=== PATIENT | male | born 1985 | race Two or more races ===

== ENCOUNTER 2020-08-14 17:15 | Inpatient (IN) | payer MEDICAID ==
[~2020-08-14] VITALS: Ht 165.1 cm; Wt 54.0 kg
--- NOTE | 2020-08-14 18:19 | NUR ---
RN NOTE RECEIVED PATIENT FROM EMT IN STABLE CONDITION.
[2020-08-14 18:20] VITALS: BP 117/71
--- NOTE | 2020-08-14 19:00 | NUR ---
RN NOTE REPORT RECEIVED FROM TONE RN, PATIENT ADMITTED AT 1730, DIRECT FROM [facility]. PATIENT IN BED, ON SEMI RAMÍREZ'S, AO X4, IN NO S/SX OF ACUTE DISTRESS AT THIS TIME. PATIENT ON 6L VIA OXYGEN MASK, SATURATION AT 95%, SR ON THE MONITOR, HR IS 102. NOTED IV SITE LAC 20G, PATENT AND FLUSHIGN WELL, NO S/S OF INFECTION OR INFILTRATION. SAFETY MEASURES HAVE BEEN PROVIDED AND IMPLEMENTED. PATIENT BED ALARM IS ON. HEAD OF BED ELEVATED. BED IS LOCKED, IN LOWEST POSITION AND SIDE RAILS UP. CALL LIGHT WITHIN REACH OF THE PATIENT. WILL CONTINUE TO MONITOR AND REASSESS FOR ANY CHANGES. AWAITING MD ORDERS.
[2020-08-14 20:00] VITALS: BP 121/71
--- NOTE | 2020-08-14 20:00 | NUR ---
RN NOTE NOTED STILL NO MD ORDERS ON FILE. DR MARIANO WAS NOTIFIED. AWAITING MD ORDERS.
[2020-08-14] MEDS ORDERED: ALBUTEROL SULFATE INH 18 GM HFA.AER.AD IH PRN (21:30)
[2020-08-14] MEDS ORDERED: HYDROCODONE/APAP 5/325MG TABLET PO PRN (21:30)
[2020-08-14] MEDS ORDERED: MAG HYDROX/AL HYDROX/SIMETH 30 ML UDC PO PRN (21:30)
[2020-08-14] MEDS ORDERED: ONDANSETRON HCL/PF 4 MG/2 ML VIAL IVP PRN (21:30)
[2020-08-14] MEDS: CEFTRIAXONE 1 G in IV D5W 50 ML IV SCH (21:30)
[2020-08-14] MEDS ORDERED: MORPHINE SULFATE INJ 2 MG/ML DISP.SYRIN IV PRN (21:30)
[2020-08-14] MEDS ORDERED: MAGNESIUM HYDROXIDE 30 ML UDC PO PRN (21:30)
--- NOTE | 2020-08-14 21:30 | NUR ---
RN NOTE VERIFIED ALLERGY WITH PATIENT, STATED NO KNOWN FOOD OR DRUG ALLERGIES. PATIENT ALSO COMPLAINING OF DRY COUGH, SAYS IT HURTS AND IT BOTHERS HIM. DR MARIANO WAS NOTIFIED, RECEIVED ORDERS FOR ROBITUSSIN DM 5 ML Q4H PRN. MACHINE CRATER WAS MADE AWARE.
[2020-08-14] MEDS: IV 1/2NS 1000 ML 1,000 ML IV PRN (22:17)
[2020-08-14] MEDS ORDERED: CEFTRIAXONE 1 G VIAL ONE (22:26)
[2020-08-14] MEDS: DEXAMETHASONE SOD PHOSPHATE 10 MG/ML VIAL IV SCH (22:33)
[2020-08-14] MEDS ORDERED: AZITHROMYCIN 500 MG VIAL ONE (22:36)
[2020-08-14] MEDS: ENOXAPARIN SODIUM 40 MG/0.4 ML DISP.SYRIN SQ SCH (22:38)
[2020-08-14] MEDS: AZITHROMYCIN 500 MG in IV D5W 250 ML IV SCH (23:07)
[2020-08-14] MEDS: GUAIFENESIN/D-METHORPHAN HB 5 ML UDC PO PRN (23:16)
[2020-08-15] VITALS: BP 122/62
--- NOTE | 2020-08-15 01:00 | NUR ---
RN NOTE MRSA SWAB DONE PER ORDERS. SPECIMEN CONTAINER PLACED IN FRIDGE AND LAB WAS NOTIFIED. CONFIGURATION DEVELOPER AWARE.
[2020-08-15 04:00] VITALS: BP 123/73
[2020-08-15 06:18] LABS: BASOPHILS % (AUTO) 0.2 % (0.0-2.0); HEMATOCRIT 40 % (39-51); HEMOGLOBIN 13.6 g/dL (13.5-17.5); LYMPHOCYTES # (AUTO) 0.8 /CMM (0.8-4.8); LYMPHOCYTES % (AUTO) 5.3 % (20.0-44.0); MEAN CORPUSCULAR HGB CONC 34 g/dl (31.0-36.0); MEAN CORPUSCULAR VOLUME 90 fL (80-96); MONOCYTES # (AUTO) 0.8 /CMM (0.1-1.30); MONOCYTES % (AUTO) 4.9 % (2.0-12.0); NEUTROPHILS # (AUTO) 13.6 /CMM (1.8-8.9); NEUTROPHILS % (AUTO) 89.6 % (43.0-81.0); PLATELET COUNT (AUTO) 590 /CMM (150-450); RED BLOOD CELL COUNT(AUTO) 4.47 MIL/uL (4.5-6.0); WHITE BLOOD COUNT (AUTO) 15.2 K/uL (4.3-11.0)
--- NOTE | 2020-08-15 07:04 | NUR ---
RN NOTE PATIENT REMAINS IN BED, SATURATION AT 94-95% ON 15 LPM VIA NON REBREATHER MASK, 0.45 NS INFUSING AT 75 ML/HR VIA LAC 20G. SR ON THE MONITOR, HR IS 84. SAFETY MEASURES AND APPROPRIATE ISOLATION PRECAUTIONS MAINTAINED. ENDORSED TO LEEANN ROBERTS FOR CONTINUATION OF CARE.
--- NOTE | 2020-08-15 07:30 | NUR ---
RN OPENING NOTES RECEIVED PT IN BED, AWAKE, A/O X4. 15L O2 VIA NRB SATURATION @90%. NO SOB OR ANY RESPIRATORY DISTRESS NOTED. SR ON TELE MONITOR. SKIN IS INTACT. REGULAR DIET. IV ACCESS AT LAC #20 INTACT AND PATENT. 0.45 NS RUNNING @75ML/HR INFUSING WELL. NO PAIN REPORTED AT TIME. SAFETY MEASURES IN PLACE. CALL LIGHT WITHIN REACH. BED LOCKED AND AT LOWEST POSITION WITH SIDE RAILS UP X2. WILL CONTINUE TO MONITOR.
[2020-08-15 07:51] LABS: ALBUMIN 1.9 g/dL (3.4-5.0); BILIRUBIN,TOTAL 0.6 mg/dL (0.2-1.0); CALCIUM, SERUM 8.2 mg/dL (8.5-10.1); CREATININE 0.8 mg/dL (0.6-1.3); MAGNESIUM 1.9 mg/dL (1.8-2.4); PHOSPHORUS 4.3 mg/dL (2.5-4.9); POTASSIUM 4.4 mmol/L (3.5-5.1); TOTAL PROTEIN, SERUM 7.2 g/dL (6.4-8.2)
[2020-08-15 08:00] VITALS: BP 108/69
[2020-08-15] MEDS: DEXAMETHASONE SOD PHOSPHATE 10 MG/ML VIAL IV SCH (08:37)
[2020-08-15 10:18] LABS: THYROID STIMULATING HORMONE 0.371 uIU/mL (0.358-3.74)
[2020-08-15 11:07] LABS: C-REACTIVE PROTEIN 19.4 mg/dL (0.0-0.9)
[2020-08-15 12:00] VITALS: BP 123/71
[2020-08-15] MEDS: IV 1/2NS 1000 ML 1,000 ML IV PRN (14:13)
[2020-08-15 16:00] VITALS: BP 120/74
--- NOTE | 2020-08-15 18:41 | NUR ---
RN CLOSING NOTES PT RESTING IN BED. SATURATION AT 90-95%. NO SOB OR ANY DISTRESS NOTED. NO SIGNIFICANT CHANGES THROUGHOUT THE SHIFT. NO PAIN REPORTED AT THIS TIME. SAFETY MEASURES MAINTAINED. ENDORSED TO NIGHT RN FOR CONTINUATION OF CARE.
--- NOTE | 2020-08-15 19:50 | NUR ---
RN NOTES PATIENT IN BED AWAKE, A/O X4. ON 15L O2 VIA NON-REBREATHER MASK, O2 SAT 90%. NO SOB NOTED. TELE MONITOR ON, SR. WITH IV ACCESS AT LAC #20 INTACT AND PATENT. 0.45 NS RUNNING @75ML/HR INFUSING WELL. NO S/S OF ANY INFILTRATION. SAFETY MEASURES IMPLEMENTED. CALL LIGHT WITHIN REACH. BED LOCKED AND AT LOWEST POSITION WITH SIDE RAILS UP X2. WILL CONTINUE TO MONITOR.
[2020-08-15 20:00] VITALS: BP 116/73
[2020-08-15] MEDS: ACETAMINOPHEN 325 MG TABLET PO PRN (20:39)
[2020-08-15] MEDS: GUAIFENESIN/D-METHORPHAN HB 5 ML UDC PO PRN (20:39)
[2020-08-15] MEDS: CEFTRIAXONE 1 G in IV D5W 50 ML IV SCH (20:40)
[2020-08-15] MEDS: ENOXAPARIN SODIUM 40 MG/0.4 ML DISP.SYRIN SQ SCH (20:41)
[2020-08-15] MEDS: AZITHROMYCIN 500 MG in IV D5W 250 ML IV SCH (21:29)
[2020-08-15] MEDS: ZOLPIDEM TARTRATE 5 MG TABLET PO PRN (21:31)
[2020-08-16] VITALS: BP 107/100
[2020-08-16 04:00] VITALS: BP 112/70
[2020-08-16] MEDS: IV 1/2NS 1000 ML 1,000 ML IV PRN (06:18)
[2020-08-16 06:26] LABS: BASOPHILS % (AUTO) 0.1 % (0.0-2.0); EOSINOPHILS % (AUTO) 0.1 % (0.0-6.0); HEMATOCRIT 42 % (39-51); HEMOGLOBIN 14.3 g/dL (13.5-17.5); LYMPHOCYTES # (AUTO) 0.9 /CMM (0.8-4.8); LYMPHOCYTES % (AUTO) 9.4 % (20.0-44.0); MEAN CORPUSCULAR HGB CONC 34 g/dl (31.0-36.0); MEAN CORPUSCULAR VOLUME 89 fL (80-96); MONOCYTES # (AUTO) 1.1 /CMM (0.1-1.30); MONOCYTES % (AUTO) 11.1 % (2.0-12.0); NEUTROPHILS # (AUTO) 7.8 /CMM (1.8-8.9); NEUTROPHILS % (AUTO) 79.3 % (43.0-81.0); PLATELET COUNT (AUTO) 521 /CMM (150-450); RED BLOOD CELL COUNT(AUTO) 4.76 MIL/uL (4.5-6.0); WHITE BLOOD COUNT (AUTO) 9.9 K/uL (4.3-11.0)
[2020-08-16 06:38] LABS: CREATININE 0.9 mg/dL (0.6-1.3); MAGNESIUM 2.2 mg/dL (1.8-2.4); POTASSIUM 3.9 mmol/L (3.5-5.1)
--- NOTE | 2020-08-16 07:15 | NUR ---
RN OPENING NOTES PATIENT RECEIVED IN BED AWAKE, A/O X4. PATIENT IS ON O2 THERAPY VIA NON-REBREATHER MASK AT 15 LPM. NO SOB NOTED AT THIS TIME. TELE MONITOR ON. IV ACCESS AT LAC #20 INTACT AND PATENT AND 0.45 NS RUNNING @75ML/HR INFUSING WELL. NO S/S OF ANY INFILTRATION. SAFETY PRECAUTIONS IMPLEMENTED, BED LOCKED IN LOWEST POSITION, SIDE RAILS UP X2, CALL LIGHT WITHIN REACH. WILL CONTINUE TO MONITOR AND PROVIDE CARE THROUGHOUT SHIFT.
--- NOTE | 2020-08-16 07:35 | NUR ---
RN NOTE PATIENT IN BED AWAKE, A/O X4. ON 15L O2 VIA NON-REBREATHER MASK, O2 SAT 90%. NO SOB NOTED. TELE MONITOR ON, HR 100'S. IV LAC #20 INTACT AND PATENT. 0.45 NS RUNNING @75ML/HR INFUSING WELL. NO S/S OF ANY INFILTRATION. SAFETY MEASURES IMPLEMENTED. CALL LIGHT WITHIN REACH. BED LOCKED AND AT LOWEST POSITION WITH SIDE RAILS UP X2. ENDORSED TO AM SHIFT.
[2020-08-16 08:00] VITALS: BP 119/66
[2020-08-16] MEDS: DEXAMETHASONE SOD PHOSPHATE 10 MG/ML VIAL IV SCH (08:50)
[2020-08-16] MEDS: GUAIFENESIN/D-METHORPHAN HB 5 ML UDC PO PRN ×3 (09:22→19:55)
[2020-08-16 11:15] LABS: ALBUMIN 2.2 g/dL (3.4-5.0); BILIRUBIN,DIRECT 0.5 mg/dL (0.0-0.2); BILIRUBIN,TOTAL 0.9 mg/dL (0.2-1.0); TOTAL PROTEIN, SERUM 7.3 g/dL (6.4-8.2)
[2020-08-16 11:20] LABS: C-REACTIVE PROTEIN 7.3 mg/dL (0.0-0.9)
[2020-08-16 12:00] VITALS: BP 108/64
[2020-08-16] MEDS: methylPREDNISolone SOD SUCC 125 MG/2ML VIAL IV SCH ×2 (12:07→20:33)
[2020-08-16] MEDS: REMDESIVIR (CHARGED) 100 MG in IV NS 0.9% 230 ML IV SCH (13:25)
[2020-08-16 16:00] VITALS: BP 125/67
[2020-08-16] MEDS ORDERED: IV NS 0.9% 500 ML IV ONE (17:00)
[2020-08-16] MEDS ORDERED: CT SWABBABLE VALVE TRANS SET 1 EA INFUS.SET MC ONE (17:49)
[2020-08-16] MEDS ORDERED: IV NS 0.9% 250 ML IV ONE (17:49)
[2020-08-16] MEDS ORDERED: IOHEXOL-350 100 ML VIAL IV ONE (17:49)
--- NOTE | 2020-08-16 19:00 | NUR ---
RN OPENING NOTE RECEIVED PATIENT IN BED RESTING ALERT ORIENTED X4 VERBALLY RESPONSIVE ON 15L NON REBREATHER MASK COVID POSITIVE, O2:96% IV SITE IS ON LEFT AC INTACT PATENT IV 1/2 NS RUNNING 75CC/HR,CONTINENT BOWEL/BLADDER,AMBULATORY WITH ASSIST,SAFETY MEASURE IMPLEMENT CALL LIGHT WITHIN REACH,BED IN LOW POSITION AND LOCKED CONTINUE TO MONITOR.
--- NOTE | 2020-08-16 19:06 | NUR ---
RN CLOSING NOTES PATIENT IN BED AWAKE, A/O X4. PATIENT IS ON O2 THERAPY VIA NON-REBREATHER MASK AT 15 LPM. NO SOB NOTED AT THIS TIME. TELE MONITOR ON. IV ACCESS AT LAC #20 INTACT AND PATENT AND NS RUNNING WIDE OPEN AND INFUSING WELL. NO S/S OF ANY INFILTRATION. SAFETY PRECAUTIONS IMPLEMENTED, BED LOCKED IN LOWEST POSITION, SIDE RAILS UP X2, CALL LIGHT WITHIN REACH. ISOLATION PRECAUTIONS MAINTAINED. WILL ENDORSE CARE TO UPCOMING SHIFT.
[2020-08-16 20:00] VITALS: BP 116/70
[2020-08-16] MEDS: CEFTRIAXONE 1 G in IV D5W 50 ML IV SCH (20:33)
[2020-08-16] MEDS: ENOXAPARIN SODIUM 40 MG/0.4 ML DISP.SYRIN SQ SCH (21:36)
[2020-08-16] MEDS: AZITHROMYCIN 500 MG in IV D5W 250 ML IV SCH (21:37)
[2020-08-17] VITALS: BP 111/52
[2020-08-17] MEDS: GUAIFENESIN/D-METHORPHAN HB 5 ML UDC PO PRN ×4 (00:29→20:41)
[2020-08-17] MEDS: ZOLPIDEM TARTRATE 5 MG TABLET PO PRN (00:29)
[2020-08-17 04:00] VITALS: BP 117/74
[2020-08-17] MEDS: methylPREDNISolone SOD SUCC 125 MG/2ML VIAL IV SCH ×3 (04:26→20:41)
[2020-08-17] MEDS ORDERED: GUAIFENESIN/D-METHORPHAN HB 5 ML UDC ONE (04:53)
[2020-08-17] MEDS: IV 1/2NS 1000 ML 1,000 ML IV PRN (06:07)
--- NOTE | 2020-08-17 06:26 | NUR ---
RN CLOSING NOTE PATIENT REMAINS ON ALERT ORIENTED X4 VERBALLY RESPONSIVE ON 15L NON REBREATHER MASK, O2:90%,NO SOB NOT ACUTE DISTRESS NOTED, IV SITE IS ON LEFT AC INTACT PATENT ON IV HYDRATION 1/2NS 75 CC/HR,CONTINENT TO BOWEL/BLADDER, ALL DUE MEDS GIVEN MD ORDERED KEEP COMFORTABLE,KEEP CLEAN AND DRY,ALL NEEDS MET.ENDORSE NEXT COMING SHIFT FOR CONTINUATION OF CARE.
[2020-08-17 06:33] LABS: HEMATOCRIT 42 % (39-51); LYMPHOCYTES # (AUTO) 0.9 /CMM (0.8-4.8); LYMPHOCYTES % (AUTO) 6.7 % (20.0-44.0); MEAN CORPUSCULAR HGB CONC 34 g/dl (31.0-36.0); MEAN CORPUSCULAR VOLUME 89 fL (80-96); MONOCYTES # (AUTO) 0.8 /CMM (0.1-1.30); MONOCYTES % (AUTO) 6.3 % (2.0-12.0); NEUTROPHILS # (AUTO) 11.4 /CMM (1.8-8.9); PLATELET COUNT (AUTO) 486 /CMM (150-450); RED BLOOD CELL COUNT(AUTO) 4.69 MIL/uL (4.5-6.0); WHITE BLOOD COUNT (AUTO) 13.1 K/uL (4.3-11.0)
--- NOTE | 2020-08-17 07:05 | NUR ---
RN OPENING NOTES RECEIVED PT IN BED, AWAKE, A/O X4. 15L O2 VIA NRB SATURATION @90%. NO SOB OR ANY RESPIRATORY DISTRESS NOTED. SR ON TELE MONITOR. SKIN IS INTACT. IV ACCESS AT LAC #20 INTACT AND PATENT. 0.45 NS RUNNING @75ML/HR INFUSING WELL. NO PAIN REPORTED AT TIME. SAFETY MEASURES IN PLACE. CALL LIGHT WITHIN REACH. BED LOCKED AND AT LOWEST POSITION WITH SIDE RAILS UP X2. WILL CONTINUE TO MONITOR.
[2020-08-17 07:45] LABS: ALBUMIN 2.2 g/dL (3.4-5.0); BILIRUBIN,DIRECT 0.3 mg/dL (0.0-0.2); BILIRUBIN,TOTAL 0.5 mg/dL (0.2-1.0); CALCIUM, SERUM 8.6 mg/dL (8.5-10.1); CREATININE 0.7 mg/dL (0.6-1.3); MAGNESIUM 2.3 mg/dL (1.8-2.4); POTASSIUM 4.2 mmol/L (3.5-5.1); TOTAL PROTEIN, SERUM 7.1 g/dL (6.4-8.2)
[2020-08-17 08:00] VITALS: BP 108/60
[2020-08-17 09:03] LABS: BAND % (MANUAL) 1 % (0.0-5.0); LYMPHOCYTES % (MANUAL) 1 % (16-48); MONOCYTES % (MANUAL) 7 % (0-11.0); MYELOCYTES % 2 % (0-0); NEUTROPHILS % (MANUAL) 89 (42-76)
[2020-08-17 11:33] LABS: C-REACTIVE PROTEIN 7.9 mg/dL (0.0-0.9)
[2020-08-17 12:00] VITALS: BP 105/75
[2020-08-17] MEDS: REMDESIVIR (CHARGED) 100 MG in IV NS 0.9% 230 ML IV SCH (13:19)
[2020-08-17] MEDS: ENOXAPARIN SODIUM 40 MG/0.4 ML DISP.SYRIN SQ SCH ×2 (15:42→23:34)
[2020-08-17 16:00] VITALS: BP 106/77
[2020-08-17] MEDS ORDERED: ACETAMINOPHEN 325 MG TABLET PO ONE (17:00)
[2020-08-17] MEDS ORDERED: diphenhydrAMINE HCL 50 MG/ML VIAL IV ONE (17:00)
[2020-08-17] MEDS ORDERED: TOCILIZUMAB 400 MG in IV NS 0.9% 80 ML IV ONE (17:30)
--- NOTE | 2020-08-17 19:00 | NUR ---
RN OPENING NOTE RECEIVED PATIENT IN BED RESTING ALERT ORIENTED X4 VERBALLY RESPONSIVE MONITORING FOR COVID POSITIVE ON 15L NON REBREATHER MASK O2:90% IV SITE IS ON LEFT AC INTACT PATENT IV HYDRATION 1/2 NS RUNNING 75CC/HR.CONTINENT TO BOWEL/BLADDER AMBULATORY WITH ASSIST,SAFETY MEASURE IMPLEMENT,CALL LIGHT WITHIN REACH,BED IN LOW POSITION AND LOCKED CONTINUE TO MONITOR.
[2020-08-17 20:00] VITALS: BP 119/62
[2020-08-17] MEDS: CEFTRIAXONE 1 G in IV D5W 50 ML IV SCH (20:42)
[2020-08-17] MEDS: AZITHROMYCIN 500 MG in IV D5W 250 ML IV SCH (21:10)
[2020-08-18] VITALS: BP 116/66
--- NOTE | 2020-08-18 00:24 | NUR ---
RN NOTE REPORTED BY PT IV SITE IS LEAKING REMOVED IT AND STARTED A NEW IV LINE ON RIGHT FOREARM #20 G WITH GOOD BLOOD RETURN NO INFILTRATE INTACT PATENT CONTINUE TO MONITOR.
[2020-08-18 04:00] VITALS: BP 111/62
[2020-08-18] MEDS: methylPREDNISolone SOD SUCC 125 MG/2ML VIAL IV SCH ×3 (04:12→21:05)
[2020-08-18] MEDS: IV 1/2NS 1000 ML 1,000 ML IV PRN (06:00)
[2020-08-18 06:17] LABS: BASOPHILS % (AUTO) 0.2 % (0.0-2.0); HEMATOCRIT 41 % (39-51); HEMOGLOBIN 13.6 g/dL (13.5-17.5); LYMPHOCYTES % (AUTO) 5.9 % (20.0-44.0); MEAN CORPUSCULAR HGB CONC 34 g/dl (31.0-36.0); MEAN CORPUSCULAR VOLUME 90 fL (80-96); MONOCYTES % (AUTO) 6.4 % (2.0-12.0); NEUTROPHILS # (AUTO) 14.3 /CMM (1.8-8.9); NEUTROPHILS % (AUTO) 87.5 % (43.0-81.0); PLATELET COUNT (AUTO) 492 /CMM (150-450); RED BLOOD CELL COUNT(AUTO) 4.54 MIL/uL (4.5-6.0); WHITE BLOOD COUNT (AUTO) 16.3 K/uL (4.3-11.0)
--- NOTE | 2020-08-18 06:32 | NUR ---
RN CLOSING NOTE PATIENT REMAINS ON ALERT ORIENTED X4 VERBALLY RESPONSIVE ON 15L NON REBREATHER OXYGEN O2:92% NO SOB NOT ACUTE DISTRESS NOTED, IV SITE IS ON RIGHT FOREARM #20 IV HYDRATION 1/2NS RUNNING 75CC/HR AMBULATORY WITH ASSIST ALL DUE MEDS GIVEN MD ORDERED KEEP CLEAN AND DRY ALL THE TIME,KEPT CALL LIGHT WITHIN REACH,ALL NEEDS MET,ENDORSE NEXT COMING SHIFT FOR CONTINUATION OF CARE.
[2020-08-18 07:08] LABS: ALBUMIN 2.1 g/dL (3.4-5.0); BILIRUBIN,DIRECT 0.2 mg/dL (0.0-0.2); BILIRUBIN,TOTAL 0.4 mg/dL (0.2-1.0); CALCIUM, SERUM 8.3 mg/dL (8.5-10.1); CREATININE 0.8 mg/dL (0.6-1.3); POTASSIUM 4.2 mmol/L (3.5-5.1); TOTAL PROTEIN, SERUM 6.4 g/dL (6.4-8.2)
--- NOTE | 2020-08-18 07:15 | NUR ---
RN OPENING NOTE RECEIVED PATIENT IN BED RESTING ALERT ORIENTED X4 VERBALLY RESPONSIVE PATIENT CURRENTLY ON 15L NON REBREATHER MASK O2:91%. IV SITE NOTED ON R FOREARM 20G, INTACT & PATENT. NO S/S OF INFECTION OR INFILTRATION AT THIS TIME. IV HYDRATION 1/2 NS RUNNING 75CC/HR. CONTINENT TO BOWEL/BLADDER AMBULATORY WITH ASSIST,SAFETY MEASURE IMPLEMENT,CALL LIGHT WITHIN REACH, BED IN LOW POSITION AND LOCKED WILL CONTINUE TO MONITOR AND PROVIDE TREATMENT.
[2020-08-18 08:00] VITALS: BP 121/64
[2020-08-18] MEDS: GUAIFENESIN/D-METHORPHAN HB 5 ML UDC PO PRN ×3 (08:30→21:05)
[2020-08-18] MEDS: ENOXAPARIN SODIUM 40 MG/0.4 ML DISP.SYRIN SQ SCH ×2 (08:30→20:22)
[2020-08-18 08:45] LABS: ABG BASE EXCESS -1.2 mmol/L; ABG PCO2 33.6 mmHg (35.0-45.0); ABG PH 7.438 (7.350-7.450); ABG PO2 55.4 mmHg (75.0-100.0); COHb 0.1 % (0.5-1.5); MetHb 0.3 % (0.0-1.5); O2Hb 88.6 % (94.0-97.0); SITE, ABG Right Radial; VENT MODE, BG HFNC 30L 100%
[2020-08-18] MEDS ORDERED: DEXTROSE 50%-WATER 50 ML DISP.SYRIN IV PRN (10:00)
[2020-08-18] MEDS ORDERED: CEFEPIME 1 GM in IV D5W 50 ML IV SCH (11:30)
[2020-08-18 12:00] VITALS: BP 113/74
[2020-08-18 12:03] LABS: C-REACTIVE PROTEIN 3.4 mg/dL (0.0-0.9)
[2020-08-18] MEDS: BLOOD SUGAR DIAGNOSTIC 1 EACH STRIP IN SCH ×3 (12:07→21:23)
[2020-08-18] MEDS: CEFEPIME 2 GM in IV D5W 100 ML IV SCH ×2 (12:07→20:01)
[2020-08-18] MEDS: INSULIN REGULAR, HUMAN 100 UNIT/ML 3 ML VIAL SQ PRN ×3 (12:09→21:17)
[2020-08-18] MEDS: REMDESIVIR (CHARGED) 100 MG in IV NS 0.9% 230 ML IV SCH (14:10)
[2020-08-18 16:00] VITALS: BP 110/66
[2020-08-18] MEDS: ACETAMINOPHEN 325 MG TABLET PO PRN (17:05)
--- NOTE | 2020-08-18 18:55 | NUR ---
RN CLOSING NOTE PATIENT IN BED RESTING ALERT ORIENTED X4 VERBALLY RESPONSIVE PATIENT CURRENTLY ON HIGH LOW 30L 100% 02 & 15L NON REBREATHER MASK O2:95%. IV SITE NOTED ON R FOREARM 20G, INTACT & PATENT. NO S/S OF INFECTION OR INFILTRATION AT THIS TIME. IV HYDRATION 1/2 NS RUNNING 75CC/HR. CONTINENT TO BOWEL/BLADDER AMBULATORY WITH ASSIST,SAFETY MEASURE IMPLEMENT,CALL LIGHT WITHIN REACH, BED IN LOW POSITION AND LOCKED WILL ENDORSE TO LAWN CARETAKER NURSE FOR REHAN.
--- NOTE | 2020-08-18 19:15 | NUR ---
RECEIVED PT ON BED AWAKE A/O X4 MAC[place]IAN SPEAKING BUT CAN UNDERSTAND AND SPEAK LITTLE [place] ON HIGH FLOW O2 30L FIO2 100% AND NRM 15L SPO2 93-95% BREATHING EVEN AND UNLABORED, COVID POSITIVE, PT IS EATING ALSO WHEN I DO ROUNDS TOLERATING WELL, TELE MONITOR READS SINUS RHYTHM 90'S BED ON LOWEST POSITION AND LOCKED SIDE RAILS UP X 2 CALL LIGHT AND URINAL AT BED SIDE WILL CONT TO MONITOR
[2020-08-18 20:00] VITALS: BP 104/55
[2020-08-18] MEDS: AZITHROMYCIN 500 MG in IV D5W 250 ML IV SCH (21:05)
[2020-08-19] VITALS: BP 107/56
[2020-08-19] MEDS: IV 1/2NS 1000 ML 1,000 ML IV PRN ×2 (03:21→18:01)
[2020-08-19] MEDS: CEFEPIME 2 GM in IV D5W 100 ML IV SCH ×3 (03:30→20:05)
[2020-08-19 04:00] VITALS: BP 101/52
[2020-08-19] MEDS: methylPREDNISolone SOD SUCC 125 MG/2ML VIAL IV SCH ×3 (04:05→20:54)
--- NOTE | 2020-08-19 06:17 | NUR ---
PT IS KEEP ON REMOVING HIS NON REBREATHER MASK IN THE ENTIRE SHIFT HE SAYS THAT HE FEELS SUFFOCATED WITH NON REBREATHER MASK ON, HIS SPO2 WITH OUT NON REBREATHER MASK IS 91-93% BREATHING IS EVEN AND UNLABORED WILL CONT TO MONITOR
--- NOTE | 2020-08-19 06:43 | NUR ---
PT ON BED SLEEPING EASY TO WAKE NO SIGN AND SYMPTOMS OF RESPIRATORY DISTRESS STILL ON HIGH FLOW 30L 90% FIO2 WITH SPO2 91-93%, NO SIGNIFICANT CHANGES ON CONDITION NOTED ALL NEEDS ATTENDED, DROPLET ISOLATION FOR COVID 19 MAINTAIN BED ON LOWEST POSITION AND LOCKED SIDE RAILS UP X2 CALL LIGHT WITHIN REACH WILL ENDORSE TO AM SHIFT NURSE
--- NOTE | 2020-08-19 07:43 | NUR ---
RN OPENING NOTE PATIENT IS CURRENTLY IN BED WITH HOB AT SEMI FOWLERS POSITION. PATIENT IS ON HIGH FLOW 30L AT 90%. PATIENT IS AOX4. SKIN IS INTACT. RFA #20 IS PATENT AND INTACT. BED IS LOCKED IN THE LOWEST POSITION, 3 GUARD RAILS RAISED, CALL ANDRADE WITHIN REACH, AND ALL HOSPITAL SAFETY PRECAUTIONS ARE BEING FOLLOWED. WILL CONTINUE TO MONITOR THROUGHOUT SHIFT.
[2020-08-19 08:00] VITALS: BP 113/57
[2020-08-19] MEDS: ENOXAPARIN SODIUM 40 MG/0.4 ML DISP.SYRIN SQ SCH ×2 (08:04→20:11)
[2020-08-19] MEDS: INSULIN REGULAR, HUMAN 100 UNIT/ML 3 ML VIAL SQ PRN ×4 (08:04→21:24)
[2020-08-19] MEDS: BLOOD SUGAR DIAGNOSTIC 1 EACH STRIP IN SCH ×4 (08:05→21:23)
[2020-08-19 12:00] VITALS: BP 115/76
[2020-08-19] MEDS: GUAIFENESIN/D-METHORPHAN HB 5 ML UDC PO PRN ×2 (12:05→20:55)
[2020-08-19 16:00] VITALS: BP 113/57
--- NOTE | 2020-08-19 18:45 | NUR ---
RN CLOSING NOTE PATIENT IS CURRENTLY IN BED WITH HOB AT SEMI FOWLERS POSITION. PATIENT IS ON HIGH FLOW 30L AT 90% AND NRB AT 15L. PATIENT IS AOX4. SKIN IS INTACT. RFA #20 IS PATENT AND INTACT. BED IS LOCKED IN THE LOWEST POSITION, 3 GUARD RAILS RAISED, CALL ANDRADE WITHIN REACH, AND ALL HOSPITAL SAFETY PRECAUTIONS ARE BEING FOLLOWED. ALL DUE MEDS GIVEN AND PATIENT REMAINED STABLE THROUGHOUT SHIFT. WILL ENDORSE TO BUNK HOUSE WORKER RN.
--- NOTE | 2020-08-19 19:05 | NUR ---
RECEIVED PT ON BED AWAKE A/O X4 YI SPEAKING BUT CAN UNDERSTAND AND SPEAK LITTLE [place] ON HIGH FLOW O2 30L FIO2 90% SPO2 93-95% BREATHING EVEN AND UNLABORED, COVID POSITIVE, TELE MONITOR READS SINUS RHYTHM 90'S BED ON LOWEST POSITION AND LOCKED SIDE RAILS UP X 2 CALL LIGHT AND URINAL AT BED SIDE WILL CONT TO MONITOR
[2020-08-19 20:00] VITALS: BP 115/59
[2020-08-20] VITALS: BP 111/61
[2020-08-20 04:00] VITALS: BP 109/59
[2020-08-20] MEDS: methylPREDNISolone SOD SUCC 125 MG/2ML VIAL IV SCH ×3 (04:15→20:45)
[2020-08-20] MEDS: CEFEPIME 2 GM in IV D5W 100 ML IV SCH ×3 (04:15→20:44)
--- NOTE | 2020-08-20 06:45 | NUR ---
PT ON BED SLEEPING EASY TO WAKE NO SIGN AND SYMPTOMS OF RESPIRATORY DISTRESS STILL ON HIGH FLOW 30L 100% FIO2 WITH SPO2 91-93%, NO SIGNIFICANT CHANGES ON CONDITION NOTED ALL NEEDS ATTENDED, DROPLET ISOLATION FOR COVID 19 MAINTAIN BED ON LOWEST POSITION AND LOCKED SIDE RAILS UP X2 CALL LIGHT WITHIN REACH WILL ENDORSE TO AM SHIFT NURSE
--- NOTE | 2020-08-20 07:30 | NUR ---
RN OPENING NOTES Patient is alert and oriented. On high flow 02 via nasal cannula at 30 liters and 100 % with 02 sat of 94%.Patient is breathing even and unlabored, no s/s of respiratory distress noted. No c/o pain or discomfort. Will continue to monitor. Call light with in reach
[2020-08-20 08:00] VITALS: BP 112/57
[2020-08-20] MEDS: BLOOD SUGAR DIAGNOSTIC 1 EACH STRIP IN SCH ×4 (08:10→21:58)
[2020-08-20] MEDS: INSULIN REGULAR, HUMAN 100 UNIT/ML 3 ML VIAL SQ PRN ×4 (08:17→22:01)
[2020-08-20] MEDS: ENOXAPARIN SODIUM 40 MG/0.4 ML DISP.SYRIN SQ SCH ×2 (08:18→20:46)
[2020-08-20 11:30] LABS: C-REACTIVE PROTEIN 0.7 mg/dL (0.0-0.9)
[2020-08-20 12:00] VITALS: BP 109/68
[2020-08-20 16:00] VITALS: BP 114/64
--- NOTE | 2020-08-20 19:08 | NUR ---
RN CLOSING NOTES Patient is alert and oriented. Patient is breathing even and unlabored, no s/s of respiratory distress noted. Patient instructed to lie down prone, theresa well. No c/o pain or discomfort. Will continue to monitor. Call light with in reach.Endorsed to next shift for natalee.
--- NOTE | 2020-08-20 19:30 | NUR ---
RN NOTE RECEIVED PT IN BED, ALERT AND ORIENTED. ON HIGH FLOW NC AT 30L FIO2 100%. PT DENIES SOB OR PAIN. NO SIGNS OF DISTRESS NOTED. O2 SAT AT 95 %. ON TELE MONITORING, SHOWS SR WITH HR OF 92. IV ON RFA PATENT AND INTACT. ALL SAFETY MEASURES IMPLEMENTED PER PROTOCOL. CALL LIGHT WITHIN REACH, BED LOCKED IN LOWEST POSITION. SIDE RAILS UP X2.
--- NOTE | 2020-08-20 19:36 | NUR ---
RT PT RECVD ON HFNC 30 LPM, 100% FIO2, PT IS AWAKE AND ALERT, SPO2 IS 95-96%. NO SOB OR RESPIRATORY DISTRESS NOTED AT THIS TIME AND HFNC IS PLUGGED INTO RED OUTLET. WILL CONTINUE TO MONITOR THROUGHOUT SHIFT.
[2020-08-20 20:00] VITALS: BP 106/54
[2020-08-20] MEDS: GUAIFENESIN/D-METHORPHAN HB 5 ML UDC PO PRN (21:53)
[2020-08-21] VITALS: BP 116/62
--- NOTE | 2020-08-21 00:15 | NUR ---
RN NOTE ENCOURAGE PT TO DO PRONING. PT NOT COMFORTABLE. KEPT HOB ELEVATED. NO SIGNS OF RESP DISTRESS NOTED. O2 SAT AT 95%.
[2020-08-21 04:00] VITALS: BP 115/71
[2020-08-21] MEDS: CEFEPIME 2 GM in IV D5W 100 ML IV SCH ×3 (04:34→19:17)
[2020-08-21] MEDS: methylPREDNISolone SOD SUCC 125 MG/2ML VIAL IV SCH ×3 (04:34→20:00)
--- NOTE | 2020-08-21 06:52 | NUR ---
RN CLOSING NOTE PT TOLERATING HIGH FLOW SETTINGS. NO S/SX OF RESPIRATORY DISTRESS NOTED. DENIES ANY SOB. PT ABLE TO MAKE NEEDS KNOWN, USES URINAL. NEEDS ATTENDED. IV REMAIN PATENT AND INTACT. NO S/SX OF HYPO/HYPERGLYCEMIA NOTED. CALL LIGHT WITHIN REACH AT ALL TIMES. WILL ENDORSE TO NEXT SHIFT NURSE FOR REHAN.
[2020-08-21] MEDS: INSULIN REGULAR, HUMAN 100 UNIT/ML 3 ML VIAL SQ PRN ×4 (07:45→21:38)
[2020-08-21] MEDS: BLOOD SUGAR DIAGNOSTIC 1 EACH STRIP IN SCH ×4 (07:45→22:37)
--- NOTE | 2020-08-21 07:57 | NUR ---
RN OPENING NOTE PATIENT IS CURRENTLY IN BED WITH HOB AT SEMI FOWLERS POSITION. PATIENT IS ON HIGH FLOW AT 30L 100% FIO2 WITH NO SIGNS OF LABORED BREATHING. PATIENT IS AOX4. SKIN INTACT. RFA#20 IS PATENT AND INTACT. BED IS LOCKED IN THE LOWEST POSITION, 3 GUARD RAILS RAISED. CALL ANDRADE WITHIN REACH, AND ALL HOSPITAL SAFETY PRECAUTIONS ARE BEING FOLLOWED. WILL CONTINUE TO MONITOR THROUGHOUT SHIFT.
[2020-08-21 08:00] VITALS: BP 111/61
[2020-08-21] MEDS: ENOXAPARIN SODIUM 40 MG/0.4 ML DISP.SYRIN SQ SCH ×2 (08:56→20:01)
[2020-08-21 12:00] VITALS: BP 122/73
[2020-08-21 16:00] VITALS: BP 118/70
--- NOTE | 2020-08-21 18:21 | NUR ---
RN CLOSING NOTE PATIENT IS CURRENTLY IN BED WITH HOB AT SEMI FOWLERS POSITION. PATIENT IS ON HIGH FLOW AT 30L 100% FIO2 WITH NO SIGNS OF LABORED BREATHING. PATIENT IS AOX4. SKIN INTACT. RFA#20 IS PATENT AND INTACT. BED IS LOCKED IN THE LOWEST POSITION, 3 GUARD RAILS RAISED. CALL ANDRADE WITHIN REACH, AND ALL HOSPITAL SAFETY PRECAUTIONS ARE BEING FOLLOWED. ALL DUE MEDS GIVEN AND PATIENT REMAINED STABLE THROUGHOUT SHIFT. WILL ENDORSE TO ANGLEDOZER OPERATOR RN FOR REHAN.
--- NOTE | 2020-08-21 19:14 | NUR ---
RN NOTE RECEIVED PT ALERT AND ORIENTED X 4 IN BED WITH HEAD OF BED ELEVATED. CURRENTLY ON HI FLOW NASAL CANNULA 30L AND 100% FIO2. SPO2 90%. PT DENIES DIFFICULTY BREATHING, ALSO DENIES PAIN AND DISCOMFORT. WITH RIGHT FOREARM IV PATENT AND FLUSHING WELL WITHOUT ISSUES. PLAN OF CARE DISCUSSED, URINAL AT BEDSIDE REACHABLE, CALL LIGHT WITHIN REACH, SAFETY MEASURES IN PLACE PER PROTOCOL, WILL MONITOR PATIENT.
[2020-08-21] MEDS: GUAIFENESIN/D-METHORPHAN HB 5 ML UDC PO PRN (19:59)
[2020-08-21 20:00] VITALS: BP 116/88
--- NOTE | 2020-08-21 21:34 | NUR ---
RN NOTE PT TRANSFERRED TO ROOM 110 WITH ALL BELONGINGS.
--- NOTE | 2020-08-21 21:47 | NUR ---
Pt transferred to room 110, no adverse reaction observe, HFNC plug in to red outlet, will continue to monitor Addendum: 08/21/20 at 2149 by VITALIY LIPSCOMB RT Amended: Links added.
[2020-08-22] VITALS: BP 130/71
[2020-08-22] MEDS: CEFEPIME 2 GM in IV D5W 100 ML IV SCH ×3 (03:42→20:19)
[2020-08-22 04:00] VITALS: BP 112/67
[2020-08-22] MEDS: methylPREDNISolone SOD SUCC 125 MG/2ML VIAL IV SCH (04:04)
--- NOTE | 2020-08-22 06:51 | NUR ---
RN NOTE NO ACUTE CHANGES OBSERVED OVERNIGHT. PT REMAINS ALERT AND ORIENTED X 4. IN SEMI RAMÍREZ'S POSITION, ON HIFLOW NASAL CANNULA. SPO2 93%. RESPIRATIONS EVEN AND UNLABORED, NO SIGNS OF PAIN OR DISCOMFORT, RIGHT FOREARM IV PATENT AND FLUSHING WELL, URINAL AT BEDSIDE REACHABLE, ALL NEEDS MET AND ATTENDED TO, CALL LIGHT WITHIN REACH, SAFETY MEASURES IN PLACE, WILL ENDORSE TO MORNING RN FOR REHAN.
--- NOTE | 2020-08-22 07:40 | NUR ---
RN NOTE RECEIVED PT ALERT AND ORIENTED X 4 IN BED WITH HEAD OF BED ELEVATED. CURRENTLY ON HI FLOW NASAL CANNULA 30L AND 100% FIO2. SPO2 90%. PT DENIES DIFFICULTY BREATHING, ALSO DENIES PAIN AND DISCOMFORT. WITH RIGHT FOREARM IV PATENT AND FLUSHING WELL WITHOUT ISSUES. PLAN OF CARE DISCUSSED, URINAL AT BEDSIDE REACHABLE, CALL LIGHT WITHIN REACH, SAFETY MEASURES IN PLACE PER PROTOCOL, WILL CONTINUE TO MONITOR AND PROVIDE TREATMENT.
[2020-08-22 08:00] VITALS: BP 105/53
[2020-08-22] MEDS: BLOOD SUGAR DIAGNOSTIC 1 EACH STRIP IN SCH ×4 (08:08→21:29)
[2020-08-22] MEDS: INSULIN REGULAR, HUMAN 100 UNIT/ML 3 ML VIAL SQ PRN ×4 (08:11→21:31)
[2020-08-22] MEDS: ENOXAPARIN SODIUM 40 MG/0.4 ML DISP.SYRIN SQ SCH ×2 (08:41→20:31)
[2020-08-22 11:22] LABS: BASOPHILS # (AUTO) 0.1 /CMM (0.0-0.2); BASOPHILS % (AUTO) 0.5 % (0.0-2.0); EOSINOPHILS % (AUTO) 0.2 % (0.0-6.0); HEMATOCRIT 48 % (39-51); LYMPHOCYTES # (AUTO) 2.1 /CMM (0.8-4.8); LYMPHOCYTES % (AUTO) 8.5 % (20.0-44.0); MEAN CORPUSCULAR HGB CONC 34 g/dl (31.0-36.0); MEAN CORPUSCULAR VOLUME 90 fL (80-96); MONOCYTES # (AUTO) 1.9 /CMM (0.1-1.30); MONOCYTES % (AUTO) 7.9 % (2.0-12.0); NEUTROPHILS # (AUTO) 20.2 /CMM (1.8-8.9); NEUTROPHILS % (AUTO) 82.9 % (43.0-81.0); PLATELET COUNT (AUTO) 446 /CMM (150-450); RED BLOOD CELL COUNT(AUTO) 5.32 MIL/uL (4.5-6.0); WHITE BLOOD COUNT (AUTO) 24.4 K/uL (4.3-11.0)
[2020-08-22 11:44] LABS: CREATININE 0.9 mg/dL (0.6-1.3); POTASSIUM 3.5 mmol/L (3.5-5.1)
[2020-08-22] MEDS: methylPREDNISolone SOD SUCC 40 MG/ML VIAL IV SCH (11:50)
[2020-08-22] MEDS: GUAIFENESIN/D-METHORPHAN HB 5 ML UDC PO PRN ×2 (11:50→20:39)
[2020-08-22 12:00] VITALS: BP 112/72
[2020-08-22 13:05] LABS: BAND % (MANUAL) 1 % (0.0-5.0); LYMPHOCYTES % (MANUAL) 4 % (16-48); MONOCYTES % (MANUAL) 6 % (0-11.0); MYELOCYTES % 3 % (0-0); NEUTROPHILS % (MANUAL) 86 (42-76)
[2020-08-22 16:00] VITALS: BP 120/66
--- NOTE | 2020-08-22 19:02 | NUR ---
RN NOTE NO ACUTE CHANGES OBSERVED. PT REMAINS ALERT AND ORIENTED X 4. IN SEMI RAMÍREZ'S POSITION, ON HIFLOW NASAL CANNULA. SPO2 93%. RESPIRATIONS EVEN AND UNLABORED, NO SIGNS OF PAIN OR DISCOMFORT, RIGHT FOREARM IV PATENT AND FLUSHING WELL, URINAL AT BEDSIDE REACHABLE, ALL NEEDS MET AND ATTENDED TO, CALL LIGHT WITHIN REACH, SAFETY MEASURES IN PLACE. ENDORSED PATIENT TO SPECIAL DEPUTY SHERIFF NURSE,
[2020-08-22 20:00] VITALS: BP 117/67
[2020-08-23] VITALS: BP 108/64
[2020-08-23] MEDS: methylPREDNISolone SOD SUCC 40 MG/ML VIAL IV SCH ×3 (00:03→23:14)
[2020-08-23 04:00] VITALS: BP 107/63
[2020-08-23] MEDS: CEFEPIME 2 GM in IV D5W 100 ML IV SCH ×2 (04:18→12:25)
[2020-08-23 08:00] VITALS: BP 112/71
[2020-08-23] MEDS: BLOOD SUGAR DIAGNOSTIC 1 EACH STRIP IN SCH ×4 (09:11→21:26)
[2020-08-23] MEDS: ENOXAPARIN SODIUM 40 MG/0.4 ML DISP.SYRIN SQ SCH ×2 (09:12→21:11)
[2020-08-23] MEDS: INSULIN REGULAR, HUMAN 100 UNIT/ML 3 ML VIAL SQ PRN ×4 (09:14→21:32)
[2020-08-23] MEDS: MENTHOL/CETYLPYRD (CEPACOL) 1 LOZ LOZENGE PO PRN (09:58)
[2020-08-23 12:00] VITALS: BP 106/66
[2020-08-23 16:00] VITALS: BP 119/67
--- NOTE | 2020-08-23 19:20 | NUR ---
RN OPENING NOTE RECEIVED PATIENT IN BED RESTING ALERT ORIENTEDX4 VERBALLY RESPONSIVE ON HIGH FLOW OXYGEN 30L FIO2:90% VIA NASAL CANNULA,O2;95% IV SITE IS ON RIGHT FOREARM INTACT PATENT,CONTINENT TO BOWEL/BLADDER.BED IN LOW POSITION AND LOCKED,HEAD OF THE BED ELEVATED,CALL LIGHT WITHIN REACH,SAFETY MEASURE IMPLEMENT CONTINUE TO MONITOR.
[2020-08-23 20:00] VITALS: BP 106/59
[2020-08-23] MEDS: GUAIFENESIN/D-METHORPHAN HB 5 ML UDC PO PRN (21:31)
[2020-08-23] MEDS: ACETAMINOPHEN 325 MG TABLET PO PRN (22:07)
[2020-08-24] VITALS: BP 98/52
[2020-08-24 04:00] VITALS: BP 102/56
--- NOTE | 2020-08-24 06:48 | NUR ---
RN CLOSING NOTE PATIENT REMAINS ON ALERT ORIENTED X4 VERBALLY RESPONSIVE,ON HIGH FLOW OXYGEN 30LVIA NASAL CANNULA, FIO2:90% O2:96%,IV SITE IS ON RIGHT FOREARM INTACT PATENT,NO SOB NOT ACUTE DISTRESS NOTED,ALL DUE MEDS GIVEN MD ORDERED KEEP CLEAN AND DRY ALL THE TIME,KEEP CALL LIGHT WITHIN REACH,ALL NEEDS MET ENDORSE NEXT COMING SHIFT FOR CONTINUATION OF CARE.
--- NOTE | 2020-08-24 07:30 | NUR ---
RN OPENING NOTE PT SEMIFOWLER'S IN BED, A/Ox4, ON HIGH FLOW O2 30L FIO2 90%, TOLERATING WELL SPO2 96%, NO SIGNS OF RESP DISTRESS OR SBO NOTED, BREATHING EVEN AND UNLABORED. PT SKIN INTACT. PT RFA IV ACCESS FLUSHED, PATENT AND INTACT, NO SIGNS OF INFECTION OR INFILTRATION, SL. ALL PT SAFETY PRECAUTIONS IN PLACE, WILL CONT TO MONITOR
[2020-08-24 08:00] VITALS: BP 103/65
[2020-08-24] MEDS: BLOOD SUGAR DIAGNOSTIC 1 EACH STRIP IN SCH ×4 (08:41→21:43)
[2020-08-24] MEDS: INSULIN REGULAR, HUMAN 100 UNIT/ML 3 ML VIAL SQ PRN ×3 (08:42→22:10)
[2020-08-24] MEDS: ENOXAPARIN SODIUM 40 MG/0.4 ML DISP.SYRIN SQ SCH ×2 (08:43→20:26)
[2020-08-24 10:23] LABS: ABG BASE EXCESS 2.1 mmol/L; ABG OXYGEN SATURATION 94.8 % (92.0-98.5); ABG PH 7.459 (7.350-7.450); ABG PO2 68.3 mmHg (75.0-100.0); AaDO2 535.5 mmHg; COHb 0.3 % (0.5-1.5); MetHb 0.4 % (0.0-1.5); O2Hb 94.1 % (94.0-97.0); SITE, ABG Right Radial; VENT MODE, BG HFNC 30L 90%
[2020-08-24] MEDS: methylPREDNISolone SOD SUCC 40 MG/ML VIAL IV SCH (11:27)
--- NOTE | 2020-08-24 11:30 | NUR ---
RN NOTE PT UNABLE TO TOLERATE PRONE POSITION FOR MORE THAN 5 MIN, WILL TRY AGAIN LATER
[2020-08-24 12:00] VITALS: BP 111/55
[2020-08-24 15:59] LABS: C-REACTIVE PROTEIN < 0.2 mg/dL (0.0-0.9)
[2020-08-24 16:00] VITALS: BP 107/57
--- NOTE | 2020-08-24 19:00 | NUR ---
RN CLOSING NOTE PT ON SAME O2 SETTING OF HIGH FLOW NC 30L, FIO2 90%, SPO2 95-96% THROUGHOUT SHIFT, NO SIGNS OF RESP DISTRESS OR SOB. PT UNABLE TO TOLERATE PRONE POSITION, WILL ATTEMPT AGAIN TOMORROW. ALL PT SAFETY PRECAUTIONS IN PLACE, WILL ENDORSE REHAN TO ONCOMING RN
--- NOTE | 2020-08-24 19:10 | NUR ---
RN OPENING NOTE RECEIVED PATIENT IN BED RESTING ALERT ORIENTED X4 VERBALLY RESPONSIVE ABLE TO MAKE NEEDS KNOWN,ON 30L HIGH FLOW OXYGEN FIO2:90% O2:95%,CONTINENT TO BOWEL/BLADDER.IV SITE IS ON RIGHT FOREARM INTACT PATENT SAFETY MEASURE IMPLEMENT,CALL LIGHT WITHIN REACH,HEAD OF BED ELEVATED,BED IN LOW POSITION AND LOCKED CONTINUE TO MONITOR.
[2020-08-24 20:00] VITALS: BP 107/57
[2020-08-24] MEDS: GUAIFENESIN/D-METHORPHAN HB 5 ML UDC PO PRN (20:24)
[2020-08-24] MEDS: ACETAMINOPHEN 325 MG TABLET PO PRN (21:26)
[2020-08-25] VITALS: BP 107/74
[2020-08-25] MEDS: methylPREDNISolone SOD SUCC 40 MG/ML VIAL IV SCH ×3 (00:11→23:52)
[2020-08-25 04:00] VITALS: BP 112/71
[2020-08-25 06:23] LABS: BASOPHILS % (AUTO) 0.1 % (0.0-2.0); HEMATOCRIT 45 % (39-51); HEMOGLOBIN 15.2 g/dL (13.5-17.5); LYMPHOCYTES % (AUTO) 4.7 % (20.0-44.0); MEAN CORPUSCULAR HGB CONC 34 g/dl (31.0-36.0); MEAN CORPUSCULAR VOLUME 90 fL (80-96); MONOCYTES # (AUTO) 0.6 /CMM (0.1-1.30); MONOCYTES % (AUTO) 2.8 % (2.0-12.0); NEUTROPHILS # (AUTO) 20.3 /CMM (1.8-8.9); NEUTROPHILS % (AUTO) 92.4 % (43.0-81.0); PLATELET COUNT (AUTO) 330 /CMM (150-450); RED BLOOD CELL COUNT(AUTO) 5.05 MIL/uL (4.5-6.0)
[2020-08-25 06:43] LABS: CREATININE 0.9 mg/dL (0.6-1.3); POTASSIUM 3.8 mmol/L (3.5-5.1)
--- NOTE | 2020-08-25 06:50 | NUR ---
RN CLOSING NOTE PATIENT REMAINS ON ALERT ORIENTED X4 VERBALLY RESPONSIVE NO SOB NOT ACUTE DISTRESS NOTED HE IS ON 30L HIGH FLOW OXYGEN VIA NASAL CANNULA, FIO2:90% O2:94% IV SITE IS ON RIGHT FOREARM INTACT PATENT,ALL DUE MEDS GIVEN MD ORDERED KEEP CLEAN AND DRY ALL THE TIME,ALL NEEDS MET,KEEP CLEAN AND DRY ALL THE TIME,KEEP COMFORTABLE ALL NEEDS MET.ENDORSE NEXT COMING SHIFT FOR CONTINUATION OF CARE.
--- NOTE | 2020-08-25 07:30 | NUR ---
RN OPENING NOTE PT SEMIFOWLER'S IN BED, A/Ox4, ON HIGH FLOW O2 30L FIO2 90%, TOLERATING WELL SPO2 100%, NO SIGNS OF RESP DISTRESS OR SOB NOTED, BREATHING EVEN AND UNLABORED. PT SKIN INTACT. PT RFA IV ACCESS FLUSHED, PATENT AND INTACT, NO SIGNS OF INFECTION OR INFILTRATION, SL. PT TO HAVE CT CHEST W/O CONTRAST THIS MORNING. ALL PT SAFETY PRECAUTIONS IN PLACE, WILL CONT TO MONITOR
[2020-08-25] MEDS: BLOOD SUGAR DIAGNOSTIC 1 EACH STRIP IN SCH ×4 (07:52→21:20)
[2020-08-25 08:00] VITALS: BP 114/62
[2020-08-25] MEDS: ENOXAPARIN SODIUM 40 MG/0.4 ML DISP.SYRIN SQ SCH ×2 (08:30→20:20)
--- NOTE | 2020-08-25 10:45 | NUR ---
RN NOTE PT WENT FOR CT CHEST WO CONTRAST, NOW BACK IN STABLE CONDITION. VITALS W/IN NORMAL LIMITS, SPO2 92%. WILL CONT TO MONITOR
[2020-08-25 12:00] VITALS: BP 119/73
[2020-08-25] MEDS: INSULIN REGULAR, HUMAN 100 UNIT/ML 3 ML VIAL SQ PRN ×3 (12:25→21:29)
--- NOTE | 2020-08-25 13:05 | NUR ---
RN NOTE PT C/O 7/10 CHEST PAIN AND UPPER RT BACK PAIN AT 1205. DR MEEHAN NOTIFIED IMMEDIATELY, STAT EKG ORDERED, PT GIVEN NORCO 5/325 FOR PAIN. EKG RESULT SENT TO DR MEEHAN. PT STATES NOW THAT PAIN IS 2/10 AND FEELING BETTER. WILL CONT TO MONITOR
[2020-08-25 13:20] LABS: BAND % (MANUAL) 1 % (0.0-5.0); LYMPHOCYTES % (MANUAL) 5 % (16-48); MONOCYTES % (MANUAL) 4 % (0-11.0); NEUTROPHILS % (MANUAL) 90 (42-76)
[2020-08-25 16:00] VITALS: BP 120/68
[2020-08-25] MEDS: MENTHOL/CETYLPYRD (CEPACOL) 1 LOZ LOZENGE PO PRN (17:38)
--- NOTE | 2020-08-25 19:00 | NUR ---
RN CLOSING NOTE PT TOLERATING NC 7L SPO2 BETWEEN 91 - 95%. PT CT CHEST WITHOUT CONTRAST DONE THIS MORNING. PT CHEST PAIN HAS NOW STOPPED AND PT DENIES ANY PAIN/DISCOMFORT. PT TELE READING NSR 90s TO SINUS TACH 110s. NO OTHER CHANGES TO PT STATUS DURING SHIFT, ALL PT SAFETY PRECAUTIONS IN PLACE. WILL ENDORSE REHAN TO ONCOMING RN
--- NOTE | 2020-08-25 19:20 | NUR ---
RN OPENING NOTE RECEIVED PATIENT IN BED RESTING ALERT ORIENTED X4 VERBALLY RESPONSIVE,ABLE TO MAKE NEEDS KNOWN,ON 7L OXYGEN VIA NASAL CANNULA,O2:97% AMBULATORILY WITH ASSIST CONTINENT TO BOWEL/BLADDER,IV SITE IS ON RIGHT FOREARM INTACT PATENT,SAFETY MEASURE IMPLEMENT,BED IN LOW POSITION AND LOCKED,BED ALARM IS ON,CALL LIGHT WITHIN REACH,CONTINUE TO MONITOR.
[2020-08-25 20:00] VITALS: BP 117/71
[2020-08-26] VITALS: BP 124/71
[2020-08-26 04:00] VITALS: BP 120/71
[2020-08-26 06:36] LABS: BASOPHILS % (AUTO) 0.1 % (0.0-2.0); HEMATOCRIT 45 % (39-51); HEMOGLOBIN 14.9 g/dL (13.5-17.5); LYMPHOCYTES # (AUTO) 0.8 /CMM (0.8-4.8); LYMPHOCYTES % (AUTO) 3.7 % (20.0-44.0); MEAN CORPUSCULAR HGB CONC 33 g/dl (31.0-36.0); MEAN CORPUSCULAR VOLUME 90 fL (80-96); MONOCYTES # (AUTO) 0.6 /CMM (0.1-1.30); MONOCYTES % (AUTO) 2.8 % (2.0-12.0); NEUTROPHILS # (AUTO) 19.1 /CMM (1.8-8.9); NEUTROPHILS % (AUTO) 93.4 % (43.0-81.0); PLATELET COUNT (AUTO) 266 /CMM (150-450); RED BLOOD CELL COUNT(AUTO) 4.96 MIL/uL (4.5-6.0); WHITE BLOOD COUNT (AUTO) 20.4 K/uL (4.3-11.0)
--- NOTE | 2020-08-26 06:55 | NUR ---
RN CLOSING NOTE PATIENT REMAINS ON ALERT ORIENTED X4 VERBALLY RESPONSIVE,ABLE TO MAKE NEEDS KNOWN,ON 7L OXYGEN VIA NASAL CANNULA,O2:93% AMBULATORILY WITH ASSIST CONTINENT TO BOWEL/BLADDER,IV SITE IS ON RIGHT FOREARM INTACT PATENT,ALL DUE MEDS GIVEN MD ORDERED KEEP CLEAN AND DRY ALL THE TIME,KEPT CALL LIGHT WITHIN REACH,ALL NEEDS MET.ENDORSE NEXT COMING SHIFT FOR CONTINUATION OF CARE.
[2020-08-26 07:01] LABS: CALCIUM, SERUM 8.2 mg/dL (8.5-10.1); CREATININE 0.8 mg/dL (0.6-1.3); POTASSIUM 4.3 mmol/L (3.5-5.1)
--- NOTE | 2020-08-26 07:30 | NUR ---
RN OPENING NOTE PATIENT PRESENT IN BED, A/OX4, AMBULATORY, ON NC RECEIVING O2 AT 6L, SPO2 94%, RESPIRATIONS EVEN AND UNLABORED, DENIES PAIN, SOB OR DISCOMFORT, NSR-NST ON TELEMONITOR WITH HR OF 95, R FA IV LINE PATENT, FLUSHED AND INTACT, SAFETY PRECAUTIONS IN PLACE, BED LOCKED, IN LOWEST POSITION, HOB ELEVATED,CALL LIGHT IN REACH, WILL CONT TO MONITOR
[2020-08-26] MEDS: BLOOD SUGAR DIAGNOSTIC 1 EACH STRIP IN SCH ×4 (07:56→21:18)
[2020-08-26] MEDS: ENOXAPARIN SODIUM 40 MG/0.4 ML DISP.SYRIN SQ SCH ×2 (09:10→20:35)
[2020-08-26] MEDS: INSULIN REGULAR, HUMAN 100 UNIT/ML 3 ML VIAL SQ PRN ×4 (09:11→21:19)
[2020-08-26 11:53] VITALS: BP 120/63
[2020-08-26] MEDS: methylPREDNISolone SOD SUCC 40 MG/ML VIAL IV SCH ×2 (11:58→23:02)
[2020-08-26 12:00] VITALS: BP 118/67
[2020-08-26 12:12] LABS: LYMPHOCYTES % (MANUAL) 3 % (16-48); MONOCYTES % (MANUAL) 3 % (0-11.0); MYELOCYTES % 3 % (0-0); NEUTROPHILS % (MANUAL) 91 (42-76)
[2020-08-26 16:00] VITALS: BP 120/68
--- NOTE | 2020-08-26 18:47 | NUR ---
RN CLOSING NOTE PATIENT REMAIN IN ROOM, AMBULATED, ASSISTED WITH HYGIENE, MEDIATIONS AND INSTRUCTIONS GIVEN, STABLE THOUGHT THE SHIFT, WILL ENDORSE TO PM SHIFT RN FOR REHAN
--- NOTE | 2020-08-26 19:30 | NUR ---
RN OPENING NOTES: RECEIVED PT A/OX4 ; SENEGALESE SPEAKING, PT IN BED RESTING COMFORTABLY. PATIENT IN NO S/SX OF ACUTE DISTRESS AT THIS TIME. NO SOB NOTED. PATIENT'S BREATHING IS EVEN AND UNLABORED. PATIENT IS ON 6L OF OXYGEN VIA NC; TOLERATING WELL. PATIENT ON TELE MONITORING READING SINUS TACHY HR IS @100s AT THE TIME OF RECEIVED. PATIENT ON REGULAR DIET; TOLERATES WELL. NOTED IV SITE ON R FA#20;PATENT, INTACT AND FLUSHING WELL; NO S/S OF INFECTION OR INFILTRATION. SAFETY MEASURES HAVE BEEN PROVIDED AND IMPLEMENTED. PATIENT BED ALARM IS ON. HEAD OF BED ELEVATED. BED IS LOCKED, IN LOWEST POSITION AND SIDE RAILS UP. CALL LIGHT WITHIN REACH OF THE PATIENT. APPLICABLE ISOLATION PRECAUTIONS IN PLACE. WILL CONTINUE TO MONITOR AND REASSESS FOR ANY CHANGES AND WILL CARRY OUT ANY ONGOING AND ACTIVE MD ORDER.
[2020-08-26 20:00] VITALS: BP 121/74
[2020-08-26] MEDS: GUAIFENESIN/D-METHORPHAN HB 5 ML UDC PO PRN (20:34)
[2020-08-26] MEDS: ZOLPIDEM TARTRATE 5 MG TABLET PO PRN (21:20)
--- NOTE | 2020-08-26 22:27 | NUR ---
RN NOTES PT COMPLAINTS OF MILD ITCHINESS ON HIS BACK, PT NOT SURE WHAT TRIGGERED. RN ENDORSED INFO TO DRESS OPERATOR AND JAILENE SMITH. JAILENE SMITH ORDERED BENADRYL 25MG Q8H PRN. WILL CARRY OUT ORDER REQUESTED. DRESS OPERATOR MADE AWARE. WILL CONTINUE TO ASSESS AND MONITOR THROUGHOUT THE SHIFT.
[2020-08-26] MEDS ORDERED: diphenhydrAMINE HCL 25 MG CAPSULE PO ONE (22:30)
--- NOTE | 2020-08-26 23:00 | NUR ---
RN NOTES NO CHANGE IN PATIENT CONDITION AT THIS TIME PATIENT VITALS STABLE, NO SIGNS OF ACUTE RESPIRATORY DISTRESS. CLINICAL RESOURCE NURSE MADE AWARE. WILL CONTINUE TO MONITOR AND REASSESS FOR ANY CHANGES THROUGHOUT THE SHIFT.
[2020-08-27] VITALS: BP 117/69
--- NOTE | 2020-08-27 03:00 | NUR ---
RN NOTES PATIENT REMAINS IN NO ACUTE RESPIRATORY DISTRESS AT THIS TIME, NO CHANGES TO CONDITION/STATUS. AM PATIENT CARE DONE. RIG BUILDER HELPER WELL AWARE. WILL CONTINUE TO MONITOR AND REASSESS FOR ANY CHANGES THROUGHOUT THE SHIFT
[2020-08-27 04:00] VITALS: BP 115/66
--- NOTE | 2020-08-27 06:50 | NUR ---
RN CLOSING NOTE: PATIENT REMAINS IN ROOM IN NO SIGNS OF RESPIRATORY DISTRESS, PATIENT STILL ON 6L OF O2 VIA NC TOLERATING WELL SATURATING @ >95% SP02. SAFETY MEASURES IMPLEMENTED, BED IN LOWEST POSITION, LOCKED, SIDE RAILS UP, CALL LIGHT WITHIN REACH. ALL NEEDS AND ORDERS ADDRESSED DURING THE SHIFT. IV ACCESS MAINTAINED INTACT, SECURED AND FLUSHING WELL. ALL DUE MEDS GIVEN ORDERED & SCHEDULED ; PATIENT TOLERATED WELL. PATIENT KEPT CLEAN AND COMFORTABLE WITHIN THE SHIFT. PATIENT ENDORSED TO INCOMING SHIFT RN WITH STABLE VITAL SIGN AND FOR CONTINUITY OF CARE.
[2020-08-27 06:56] LABS: BASOPHILS # (AUTO) 0.1 /CMM (0.0-0.2); BASOPHILS % (AUTO) 0.3 % (0.0-2.0); HEMATOCRIT 43 % (39-51); HEMOGLOBIN 14.4 g/dL (13.5-17.5); LYMPHOCYTES # (AUTO) 0.7 /CMM (0.8-4.8); LYMPHOCYTES % (AUTO) 2.9 % (20.0-44.0); MEAN CORPUSCULAR HGB CONC 33 g/dl (31.0-36.0); MEAN CORPUSCULAR VOLUME 90 fL (80-96); MONOCYTES # (AUTO) 1.1 /CMM (0.1-1.30); MONOCYTES % (AUTO) 4.7 % (2.0-12.0); NEUTROPHILS # (AUTO) 21.1 /CMM (1.8-8.9); NEUTROPHILS % (AUTO) 92.1 % (43.0-81.0); PLATELET COUNT (AUTO) 224 /CMM (150-450); RED BLOOD CELL COUNT(AUTO) 4.79 MIL/uL (4.5-6.0); WHITE BLOOD COUNT (AUTO) 22.9 K/uL (4.3-11.0)
[2020-08-27 07:22] LABS: CREATININE 0.7 mg/dL (0.6-1.3); POTASSIUM 4.4 mmol/L (3.5-5.1)
[2020-08-27] MEDS: BLOOD SUGAR DIAGNOSTIC 1 EACH STRIP IN SCH ×4 (07:39→22:42)
[2020-08-27 08:00] VITALS: BP 112/73
--- NOTE | 2020-08-27 08:10 | NUR ---
ms rn received on bed, awake,alert,oriented x4,not in any form of distress,respirations even ,on 6 liters saturating 93-96%,denies pain at this time,will monitor patient.
[2020-08-27] MEDS: ENOXAPARIN SODIUM 40 MG/0.4 ML DISP.SYRIN SQ SCH ×2 (09:29→21:41)
[2020-08-27 10:40] LABS: BAND % (MANUAL) 2 % (0.0-5.0); LYMPHOCYTES % (MANUAL) 2 % (16-48); MONOCYTES % (MANUAL) 3 % (0-11.0); MYELOCYTES % 1 % (0-0); NEUTROPHILS % (MANUAL) 92 (42-76)
[2020-08-27 12:00] VITALS: BP 114/71
--- NOTE | 2020-08-27 12:10 | NUR ---
ms rn blood sugar - 164 - patient refused coverage, according to him,he is not diabetic.
[2020-08-27] MEDS: methylPREDNISolone SOD SUCC 40 MG/ML VIAL IV SCH ×2 (12:23→23:21)
[2020-08-27] MEDS: ACETAMINOPHEN 325 MG TABLET PO PRN (12:23)
--- NOTE | 2020-08-27 15:39 | NUR ---
ms rn on bed,no distress noted.
[2020-08-27 16:00] VITALS: BP 116/59
--- NOTE | 2020-08-27 17:35 | NUR ---
ms rn blood [id number] refused coverage he is not diabetic per patient.
--- NOTE | 2020-08-27 19:30 | NUR ---
RN OPENING NOTES: RECEIVED CAMEROONIAN SPEAKING PT A/OX4; PT IN BED RESTING COMFORTABLY. PATIENT IN NO S/SX OF ACUTE DISTRESS AT THIS TIME. NO SOB NOTED. PATIENT'S BREATHING IS EVEN AND UNLABORED. PATIENT IS ON 5L OF OXYGEN VIA NC; TOLERATING WELL. PATIENT ON TELE MONITORING READING SINUS TACHY HR IS @100s AT THE TIME OF RECEIVED. PATIENT ON REGULAR DIET; TOLERATES WELL. NOTED IV SITE ON R FA#20;PATENT, INTACT AND FLUSHING WELL; NO S/S OF INFECTION OR INFILTRATION. SAFETY MEASURES HAVE BEEN PROVIDED AND IMPLEMENTED. PATIENT BED ALARM IS ON. HEAD OF BED ELEVATED. BED IS LOCKED, IN LOWEST POSITION AND SIDE RAILS UP. CALL LIGHT WITHIN REACH OF THE PATIENT. APPLICABLE ISOLATION PRECAUTIONS IN PLACE. WILL CONTINUE TO MONITOR AND REASSESS FOR ANY CHANGES AND WILL CARRY OUT ANY ONGOING AND ACTIVE MD ORDER.
[2020-08-27 22:00] VITALS: BP 118/58
[2020-08-27] MEDS: ZOLPIDEM TARTRATE 5 MG TABLET PO PRN (22:13)
[2020-08-27] MEDS ORDERED: diphenhydrAMINE HCL 25 MG CAPSULE PO PRN (22:30)
--- NOTE | 2020-08-27 22:30 | NUR ---
RN NOTES NO CHANGE IN PATIENT CONDITION AT THIS TIME PATIENT VITALS STABLE, NO SIGNS OF ACUTE RESPIRATORY DISTRESS. LOADER MADE AWARE. WILL CONTINUE TO MONITOR AND REASSESS FOR ANY CHANGES THROUGHOUT THE SHIFT.
[2020-08-27] MEDS: INSULIN REGULAR, HUMAN 100 UNIT/ML 3 ML VIAL SQ PRN (22:45)
[2020-08-27] MEDS: GUAIFENESIN/D-METHORPHAN HB 5 ML UDC PO PRN (22:45)
[2020-08-28] VITALS: BP 121/68
--- NOTE | 2020-08-28 03:00 | NUR ---
RN NOTES PATIENT REMAINS IN NO ACUTE RESPIRATORY DISTRESS AT THIS TIME, NO CHANGES TO CONDITION/STATUS. AM PATIENT CARE DONE. SANITATION SUPERVISOR WELL AWARE. WILL CONTINUE TO MONITOR AND REASSESS FOR ANY CHANGES THROUGHOUT THE SHIFT
[2020-08-28 04:00] VITALS: BP 120/59
[2020-08-28 06:25] LABS: BASOPHILS % (AUTO) 0.1 % (0.0-2.0); HEMATOCRIT 45 % (39-51); LYMPHOCYTES % (AUTO) 4.7 % (20.0-44.0); MEAN CORPUSCULAR HGB CONC 33 g/dl (31.0-36.0); MEAN CORPUSCULAR VOLUME 91 fL (80-96); MONOCYTES # (AUTO) 1.1 /CMM (0.1-1.30); MONOCYTES % (AUTO) 5.1 % (2.0-12.0); NEUTROPHILS # (AUTO) 19.1 /CMM (1.8-8.9); NEUTROPHILS % (AUTO) 90.1 % (43.0-81.0); PLATELET COUNT (AUTO) 191 /CMM (150-450); RED BLOOD CELL COUNT(AUTO) 4.98 MIL/uL (4.5-6.0); WHITE BLOOD COUNT (AUTO) 21.2 K/uL (4.3-11.0)
--- NOTE | 2020-08-28 06:50 | NUR ---
RN CLOSING NOTE: PATIENT REMAINS IN ROOM IN NO SIGNS OF RESPIRATORY DISTRESS, PATIENT STILL ON 3L OF O2 VIA NC; TOLERATING WELL SATURATING @ >95% SP02. SAFETY MEASURES IMPLEMENTED, BED IN LOWEST POSITION, LOCKED, SIDE RAILS UP, CALL LIGHT WITHIN REACH. ALL NEEDS AND ORDERS ADDRESSED DURING THE SHIFT. IV ACCESS MAINTAINED INTACT, SECURED AND FLUSHING WELL. ALL DUE MEDS GIVEN ORDERED & SCHEDULED ; PATIENT TOLERATED WELL. PATIENT KEPT CLEAN AND COMFORTABLE WITHIN THE SHIFT. PATIENT ENDORSED TO INCOMING SHIFT RN WITH STABLE VITAL SIGN AND FOR CONTINUITY OF CARE.
[2020-08-28 07:07] LABS: CALCIUM, SERUM 8.4 mg/dL (8.5-10.1); CREATININE 0.7 mg/dL (0.6-1.3)
--- NOTE | 2020-08-28 07:36 | NUR ---
MS/RN OPENING NOTE RECEIVED PATIENT FROM FORENSICS TEAM DIRECTOR NURSE. PATIENT SEEN LAYING IN HOSPITAL BED A/O X4. NO ACUTE DISTRESS NOTED AT THIS TIME. PATIENT ON NASAL CANNULA, TOLERATING WELL, O2 SAT 94%. SAFETY MEASURES IN PLACE, BED LOCKED AND IN LOWEST POSITION, CALL LIGHT WITHIN REACH, WILL CONTINUE TO MONITOR AND ENSURE SAFETY.
[2020-08-28] MEDS: BLOOD SUGAR DIAGNOSTIC 1 EACH STRIP IN SCH ×3 (07:59→17:23)
[2020-08-28 08:00] VITALS: BP 121/69
[2020-08-28] MEDS: ENOXAPARIN SODIUM 40 MG/0.4 ML DISP.SYRIN SQ SCH (08:47)
[2020-08-28] MEDS: INSULIN REGULAR, HUMAN 100 UNIT/ML 3 ML VIAL SQ PRN ×2 (08:47→17:32)
--- NOTE | 2020-08-28 10:46 | NUR ---
MS/RN NOTE SPO2 88% ON ROOM AIR AT REST.
[2020-08-28] MEDS: methylPREDNISolone SOD SUCC 40 MG/ML VIAL IV SCH (11:46)
[2020-08-28] MEDS ORDERED: ASPI-1169 PO (12:26)
[2020-08-28] MEDS ORDERED: METH4TAB3 PO (12:26)
[2020-08-28] MEDS ORDERED: ALBU18HF2 INH (12:26)
[2020-08-28 12:50] VITALS: BP 116/59
[2020-08-28 16:54] VITALS: BP 122/79
--- NOTE | 2020-08-28 18:36 | NUR ---
MS/RN DISCHARGED PATIENT WAS DISCHARGED TO HOME IN MEDICALLY STABLE CONDITION. NAME BAND AND IV REMOVED, PRESSURE DRESSING APPLIED. ALL PERSONAL BELONGINGS ACCOUNTED AND SIGNED OFF FOR IN BELONGINGS LIST. EDUCATED PATIENT ON DISCHARGE INSTRUCTIONS/ EXIT CARE. INFORMED PATIENT OF PRESCRIPTION MEDICATIONS AND SIDE EFFECTS. PATIENT VERBALIZED UNDERSTANDING. COPY OF DISCHARGE INSTRUCTION/ EXIT CARE GIVEN TO PATIENT. PATIENT LEFT UNIT FLOOR ACCOMPANIED BY BOTH BROTHER AND SISTER, 1 GENERAL CLEANER AND RN, IN STABLE CONDITIONS.
== END 2020-08-28 18:18 | disposition home or self-care (01) | DRG 137 ==
LOC: TELE1 17:15
PROVIDERS: ADMIT Nurse Practitioner Acute Care; ATTEND Nurse Practitioner Acute Care
PROC: XW033E5 Introduction of Remdesivir Anti-infective into Peripheral Vein, Percutaneous Approach, New Technology Group 5 (ICD-10-PCS; principal; 2020-08-16)
PROC: XW033H5 Introduction of Tocilizumab into Peripheral Vein, Percutaneous Approach, New Technology Group 5 (ICD-10-PCS; 2020-08-17)
DX: U07.1 COVID-19 (principal); J96.01 Acute respiratory failure with hypoxia; J12.82 Pneumonia due to coronavirus disease 2019; E44.0 Moderate protein-calorie malnutrition; J15.9 Unspecified bacterial pneumonia; Z68.1 Body mass index [BMI] 19.9 or less, adult; R74.01 Elevation of levels of liver transaminase levels; D47.3 Essential (hemorrhagic) thrombocythemia; T38.0X5A Adverse effect of glucocorticoids and synthetic analogues, initial encounter; Y92.9 Unspecified place or not applicable; E88.09 Other disorders of plasma-protein metabolism, not elsewhere classified; R73.9 Hyperglycemia, unspecified
CPT/HCPCS: 36415; 36600; 71045-TC; 71250-TC; 80048-TC; 80053-TC; 80061-TC; 80076-TC; 82728-TC; 82803-TC; 82962-TC; 83615-TC; 83735-TC; 84100-TC; 84443-TC; 85025-TC; 85378-TC; 85610-TC; 85730-TC; 86140-TC; 87081-TC; 93970-TC; 94760-TC; 94762-TC; 94799-TC; 97116-TC; 97530-TC; 99082-TC; G0378; J0456; J0692; J0696; J1100; J1200; J1650; J1815; J2270; J2920; J2930; J3262; J3490; J7030; J7040; J7050; J7060; Q0163; Q9967

== ENCOUNTER 2020-09-04 10:44 | Emergency (ER) | payer MEDICAID ==
[~2020-09-04] VITALS: Ht 165.1 cm; Wt 76.2 kg
[~2020-09-04 10:44] MED LIST: ALBU18HF2 INH; ASPI-1169 PO; METH4TAB3 PO
[2020-09-04 10:53] VITALS: BP 122/78
== END 2020-09-04 11:55 | disposition home or self-care (01) ==
LOC: ER 10:46
DX: R21 Rash and other nonspecific skin eruption (principal); Z79.82 Long term (current) use of aspirin; Z79.899 Other long term (current) drug therapy